=== PATIENT | female | born 1985 | race Caucasian/White ===

== ENCOUNTER 2023-09-28 09:31 | Emergency (ER) | payer OTHER, SELFPAY ==
[2023-09-28 09:36] VITALS: BP 157/99
[2023-09-28 10:03] VITALS: BP 133/100
[2023-09-28 10:05] VITALS: BMI 29.3
--- NOTE | 2023-09-28 10:10 | ED.GENMED ---
History of Present Illness
General
Chief Complaint: Heart Rate Problem
Time Seen by Provider: 09/28/23 09:54
History of Present Illness
History of Present Illness:
38-year-old female with history of hypertension, bigeminy and mitral valve prolapse presenting to the emergency department for palpitations and leg pain. Patient reports for the past several days she has been having a burning/flushing sensation in
her chest. She feels like her heart rate has been jumping around. She reports that she has been compliant with her medications. She recently traveled from [place] in the middle of August, 4-hour flight. She has been having pain in her thighs.
She called her restaurant hostess who to make sure that she does not have a blood clot. Denies any history of blood clots in the past or any family history of blood clots. Denies any difficulty breathing. She did not take her blood pressure medications
this morning. Patient is also on Augmentin, getting over a upper respiratory infection. Suspect 2 weeks ago. Denies additional acute medical complaints
Past History
Past History
ED Past Medical History: Arrthythmia (frequent PVC's, bigeminy)
ED Past Surgical History:
Phy Exam
Physical Exam
Physical Exam:
General: Well-appearing, no clinical signs of dehydration, nontoxic and in no acute distress
HEENT: protecting airway
Neck: appears supple
CV: Normal heart rate, regular rhythm, no evidence of cyanosis
Resp: No accessory muscle use, no increased work of breathing, lungs clear to auscultation bilaterally
Abd: Soft and non-distended, no tenderness to palpation, normal bowel sounds
Extremities: No deformities, no swelling, no erythema, pulses and sensation intact.
Neuro: alert, no focal neurologic deficit
: deferred
Rectal: deferred
Psych: Anxious
Skin: Intact
Scores
Heart Score for Chest Pain Patients
STEMI patient?: No
History: Slightly or Non-Suspicious
ECG: Normal
Age: </= 45 years
Risk Factors: 1 or 2 Risk Factors
Troponin: </= Normal Limit
Heart Score for Chest Pain Patients: 1
Heart Score Risk: 2.5% MACE over next 6 weeks
PE Wells Score
Symptoms of DVT: No
No alternative diagnosis better explains the illness: No
Tachycardia with pulse > 100: No
Immobilization (>=3 days) or surgery within previous 4 weeks: No
Prior history of DVT or pulmonary embolism: No
Presence of hemoptysis: No
Presence of malignancy: No
Pulmonary Embolism Risk Score: 0
Probability of PE: Pt is low risk
Course
Orders/Labs/Results
Orders:
Orders
09/28/23 09:35
Electrocardiogram (*1) Urgent
Reason for Study: Chest Pain
EKG- Treatment ONCE
09/28/23 10:05
Test Result ONCE
09/28/23 10:08
Complete Blood Count/With Diff Urgent
Comprehensive Metabolic Panel Urgent
D-Dimer Urgent
HCG, Serum Qualitative Screen Urgent
Troponin I Urgent
09/28/23 10:10
NIFEdipine EXTENDED RELEASE [Procardia Xl (Extended Release)] 60 mg PO NOW STA
09/28/23 10:50
Labetalol [Trandate] 100 mg PO NOW STA
Abnormal Lab Results
09/28/23
10:08
RBC 3.84 L 10^6/uL
(4.20-5.40)
Hct 35.7 L %
(37.0-47.0)
MCH 33.3 H pg
(27.0-31.0)
09/28/23 10:08
09/28/23 10:08
Vital Signs
Initial and Last Documented VS:
Initial Vital Signs
Temp Pulse Resp BP Pulse Ox
98.9 F 102 16 157/99 100
09/28/23 09:36 09/28/23 09:36 09/28/23 09:36 09/28/23 09:36 09/28/23 09:36
Last Documented Vital Signs
Temp Pulse Resp BP Pulse Ox
98.9 F 78 15 129/83 97
09/28/23 09:36 09/28/23 12:00 09/28/23 12:00 09/28/23 11:03 09/28/23 12:00
MDM/Problems Addressed
MDM/Problems Addressed:
38-year-old female with history of hypertension, bigeminy, mitral valve prolapse presenting for lower extremity pain and palpitations. Vital signs on arrival are significant for hypertension, however patient did not take her blood pressure
medications this morning.
On exam patient is well-appearing, however very anxious. Unremarkable cardiac and pulmonary exam. EKG obtained, nonischemic. No signs of bigeminy or arrhythmia. Patient low risk for ACS, currently without chest pain. Low suspicion for acute
coronary syndrome. Patient with minimal PE risk factors. Notes that she did recently travel on a plane for a 4-hour flight. Her main concern is a PE. No signs of DVT to the lower extremities. She is Wells negative. Suspect musculoskeletal
quality to patient's pain. Will screen with a D-dimer. Will administer patient's home blood pressure medications.
12:30 -patient's labs are negative, with negative troponin and negative D-dimer. At this time, again without concern for PE or acute cardiac event. Patient remains hemodynamically stable. Advised compliance with her blood pressure medication, and
follow-up with her restaurant hostess.. Return precautions discussed and patient verbalized understand
*EKG
Interpreted by ED Provider?: Yes
EKG Intrepretation Date: 09/28/23
EKG Intrepretation Time: 10:14
Interpretation: normal
Comparison EKG: no changes
Heart Rate: 97
Rate: normal
Rhythm: sinus
[place]: normal axis
Interval: normal interval
QRS Pattern: normal QRS
Ischemia: no ischemia
*Critical Care Note
Total Time (30-74mins, 75-104mins- exclusive of procedures): Not Applicable
ED Attending Note
-
Portions of this chart may have been created with voice recognition software.� Occasional wrong word or��sound alike� substitutions may have occurred due to the inherent limitations of voice recognition software.
Discharge Plan
Departure
Patient Disposition: Home (Routine Discharge)
Date of Disposition: 09/28/23
Time of Disposition: 12:34
Patient with high blood pressure during this ER visit?: Yes
Condition: Good
Discharge Problem:
Heart palpitations, Hypertension
Instructions: Palpitations (DC), BLOOD PRESSURE
Referrals:
Zohaib Arriaga MD [Family Provider] -
Interventions
Interventions:
*Risk Screen - Suicide Last Done: 09/28/23 09:36
*General Assessment Last Done: 09/28/23 09:36
*Neglect/Abuse Screening Last Done: 09/28/23 09:36
ED- Fall Risk Assessment Last Done: 09/28/23 10:08
ED- Cardiac Assessment Last Done: 09/28/23 10:08
ED- Pulmonary Assessment Last Done: 09/28/23 10:08
Discharge Date and Time
Print Language: CHINESE
[2023-09-28 10:37] LABS: % Basophils 0.5 % (0-2); % Eosinophils 1.1 % (0-6); % Immature Granulocytes 0.4 % (0-0.5); % Lymphocytes 27.8 % (20.5-51.1); % Monocytes 8.2 % (1.7-9.3); Absolute Eosinophils 0.1 10^3/uL (0-0.7); Absolute Lymphocytes 1.6 10^3/uL (1.2-3.4); Absolute Monocytes 0.5 10^3/uL (0.1-0.6); Absolute Neutrophils 3.5 10^3/uL (1.4-6.5); Hematocrit 35.7 % (37.0-47.0); Hemoglobin 12.8 g/dL (12.0-16.0); Mean Corp Hgb Conc. 35.9 g/dL (33.0-37.0); Mean Corpuscular Hgb 33.3 pg (27.0-31.0); Mean Platelet Volume 9.3 fL (7.4-10.4); Nucleated Red Blood Cells % 0 %; Platelet Count 275 10^3/uL (130-400); Red Blood Cell Count 3.84 10^6/uL (4.20-5.40); Red Cell Dist. Width 12.5 % (11.5-14.5); White Blood Cell Count 5.7 10^3/uL (4.8-10.8)
[2023-09-28 10:40] LABS: HCG, Serum Qualitative Screen Negative
[2023-09-28 10:45] LABS: ALT (SGPT) 21 U/L (0-35); AST (SGOT) 23 U/L (14-36); Albumin 4.3 g/dl (3.5-5.0); Alkaline Phosphatase 71 U/L (38-126); Blood Urea Nitrogen 10 mg/dl (7-17); Calcium 9.2 mg/dl (8.4-10.2); Carbon Dioxide 25 mmol/L (22-30); Chloride 107 mmol/L (98-107); Estimated Creatinine Clearance > 125 ml/min; Glucose 99 mg/dl (70-99); Potassium 4.3 mmol/L (3.5-5.1); Sodium 139 mmol/L (135-145); Total Bilirubin 0.8 mg/dl (0.2-1.3); Total Protein 6.4 g/dl (6.3-8.2); eGFR > 60.00
[2023-09-28 10:51] VITALS: BP 128/84
[2023-09-28 10:55] LABS: Troponin I < 0.012 ng/ml
[2023-09-28 11:00] VITALS: BP 129/83
[2023-09-28] MEDS: PROCARDIA XL (EXTENDED RELEASE) 60 MG PO (11:03)
[2023-09-28] MEDS: TRANDATE 100 MG PO (11:03)
[2023-09-28 12:00] VITALS: BP 110/76
[2023-09-28 12:00] LABS: D-Dimer < 0.27 ug/mlFEU (0.00-0.50)
== END 2023-09-28 12:48 | disposition home or self-care (01) ==
LOC: EMR 09:31
PROVIDERS: EMERGENCY PHYSICIAN Student in an Organized Health Care Education/Training Program; FAMILY PHYSICIAN Internal Medicine
DX: R00.2 Palpitations (principal); I10 Essential (primary) hypertension
CPT/HCPCS: 99284; 80053; 84484; 84703; 85025; 85379; 93005

== ENCOUNTER 2023-10-03 15:23 | Emergency (ER) | payer OTHER, SELFPAY ==
[2023-10-03 15:27] VITALS: BP 143/85
[2023-10-03 16:00] LABS: % Basophils 0.5 % (0-2); % Eosinophils 0.5 % (0-6); % Immature Granulocytes 0.5 % (0-0.5); % Lymphocytes 18.1 % (20.5-51.1); % Monocytes 6.2 % (1.7-9.3); % Neutrophils 74.2 % (42.2-75.2); Absolute Lymphocytes 1.2 10^3/uL (1.2-3.4); Absolute Monocytes 0.4 10^3/uL (0.1-0.6); Absolute Neutrophils 4.8 10^3/uL (1.4-6.5); Hematocrit 37.7 % (37.0-47.0); Hemoglobin 13.2 g/dL (12.0-16.0); Mean Corpuscular Hgb 32.8 pg (27.0-31.0); Mean Corpuscular Volume 93.5 fL (81.0-99.0); Mean Platelet Volume 9.2 fL (7.4-10.4); Nucleated Red Blood Cells % 0 %; Platelet Count 270 10^3/uL (130-400); Red Blood Cell Count 4.03 10^6/uL (4.20-5.40); Red Cell Dist. Width 12.3 % (11.5-14.5); White Blood Cell Count 6.5 10^3/uL (4.8-10.8)
[2023-10-03 16:20] LABS: ALT (SGPT) 37 U/L (0-35); AST (SGOT) 35 U/L (14-36); Alkaline Phosphatase 70 U/L (38-126); Blood Urea Nitrogen 10 mg/dl (7-17); Calcium 9.9 mg/dl (8.4-10.2); Carbon Dioxide 24 mmol/L (22-30); Chloride 106 mmol/L (98-107); Glucose 122 mg/dl (70-99); Magnesium 2.1 mg/dl (1.6-2.3); Potassium 4.1 mmol/L (3.5-5.1); Sodium 138 mmol/L (135-145); Total Protein 7.3 g/dl (6.3-8.2); eGFR > 60.00
[2023-10-03 16:22] LABS: NT-proBNP < 20.0 pg/ml; Troponin I < 0.012 ng/ml
[2023-10-03 16:26] VITALS: BMI 29.3
--- NOTE | 2023-10-03 16:44 | ED.GENMED ---
History of Present Illness
<Kamla Horowitz DO, Resident - Last Filed: 10/03/23 17:09>
General
Chief Complaint: Heart Rate Problem
Source: patient
Time Seen by Provider: 10/03/23 16:32
History of Present Illness
History of Present Illness:
Pt is a 38 Yo F with hx of MVP presenting to ED after heart rate spikes and drops, sensations of chest pressure and dizziness. She recently completed a course of Augmentin and is currently taking labetalol and nifedipine. She reports chest
tightness, dizziness, brain fog, sensations of difficulty breathing and faintness. Symptoms have been ongoing since August 28.
If applicable-neuro sx onset
Onset of symptoms known: Yes
Date of onset of symptoms: 08/29/23
Past History
<Kamla Horowitz DO, Resident - Last Filed: 10/03/23 17:09>
Past History
ED Past Medical History: Arrthythmia (frequent PVC's, bigeminy)
ED Past Surgical History:
Social History
Tobacco: Non-smoker
Alcohol: Occasional
Drug: None
Personal:
Family History
Family History: CAD
Review of Systems
<Kamla Horowitz DO, Resident - Last Filed: 10/03/23 17:09>
Review of Systems
Constitutional: Reports no symptoms
EENT: Reports no symptoms
Respiratory: Reports no symptoms
Cardiac: Reports chest pain (chest tightness), diaphoresis, palpitations and syncope
ABD/GI: Reports nausea
: Reports no symptoms
Musculoskeletal: Reports edema (BL legs, intermittent)
Skin: Reports other (bruising behind knees)
Neurological: Reports dizzy, weakness and other (brain fog)
Endocrine: Reports no symptoms
Phy Exam
<Kamla Horowitz DO, Resident - Last Filed: 10/03/23 17:09>
General Physical Exam
General Presentation: mild distress
General age: appears stated age
General Skin: warm and dry
General Habitus: normal
General Mental: alert
General Hydration: appears well hydrated
Cardiovascular Exam
Cardiovascular Exam: regular rate/rhythm, no edema, no gallop, no JVD, no murmur and normal peripheral pulses
Pulmonary Exam
Pulmonary Exam: lungs clear, no respiratory distress, no rales, chest non tender, no crackles, no rhonchi, no stridor, no wheezing and no cough
Gastrointestinal Exam
Gastrointestinal Exam: non tender, soft and non distended
Course
<Kamla Horowitz DO, Resident - Last Filed: 10/03/23 17:09>
Orders/Labs/Results
Orders:
Orders
10/03/23 15:26
ECG [Electrocardiogram (*1)] Urgent
Reason for Study: Tachycardia
EKG- Treatment ONCE
10/03/23 15:38
Complete Blood Count/With Diff Urgent
Comprehensive Metabolic Panel Urgent
Magnesium Urgent
NT-proBNP Urgent
TSH Reflex To Free T4 Urgent
Troponin I Urgent
10/03/23 17:08
US Periph Venous LOWER Ext Eddie Urgent
Comment:
Reason For Exam: swelling
10/03/23 17:09
Add On- LAB Urgent
Tests Added?: tsh, magnesium
10/03/23 17:26
D-Dimer Urgent
Abnormal Lab Results
10/03/23
15:38
RBC 4.03 L 10^6/uL
(4.20-5.40)
MCH 32.8 H pg
(27.0-31.0)
Lymphocytes % 18.1 L %
(20.5-51.1)
Glucose 122 H mg/dl
(70-99)
ALT 37 H U/L
(0-35)
10/03/23 15:38
10/03/23 15:38
Vital Signs
Initial and Last Documented VS:
Initial Vital Signs
Temp Pulse Resp BP Pulse Ox
98.3 F 113 20 143/85 99
10/03/23 15:27 10/03/23 15:27 10/03/23 15:27 10/03/23 15:27 10/03/23 15:27
Last Documented Vital Signs
Temp Pulse Resp BP Pulse Ox
98.3 F 94 13 121/85 98
10/03/23 15:27 10/03/23 19:15 10/03/23 19:15 10/03/23 17:00 10/03/23 19:15
<Dino Kinney, DO - Last Filed: 10/03/23 19:31>
Orders/Labs/Results
Orders:
Orders
10/03/23 15:26
ECG [Electrocardiogram (*1)] Urgent
Reason for Study: Tachycardia
EKG- Treatment ONCE
10/03/23 15:38
Complete Blood Count/With Diff Urgent
Comprehensive Metabolic Panel Urgent
Magnesium Urgent
NT-proBNP Urgent
TSH Reflex To Free T4 Urgent
Troponin I Urgent
10/03/23 17:08
US Periph Venous LOWER Ext Eddie Urgent
Comment:
Reason For Exam: swelling
10/03/23 17:09
Add On- LAB Urgent
Tests Added?: tsh, magnesium
10/03/23 17:26
D-Dimer Urgent
Abnormal Lab Results
10/03/23
15:38
RBC 4.03 L 10^6/uL
(4.20-5.40)
MCH 32.8 H pg
(27.0-31.0)
Lymphocytes % 18.1 L %
(20.5-51.1)
Glucose 122 H mg/dl
(70-99)
ALT 37 H U/L
(0-35)
10/03/23 15:38
10/03/23 15:38
Vital Signs
Initial and Last Documented VS:
Initial Vital Signs
Temp Pulse Resp BP Pulse Ox
98.3 F 113 20 143/85 99
10/03/23 15:27 10/03/23 15:27 10/03/23 15:27 10/03/23 15:27 10/03/23 15:27
Last Documented Vital Signs
Temp Pulse Resp BP Pulse Ox
98.3 F 94 13 121/85 98
10/03/23 15:27 10/03/23 19:15 10/03/23 19:15 10/03/23 17:00 10/03/23 19:15
<Dino Kinney DO - Last Filed: 10/03/23 19:31>
*Critical Care Note
Total Time (30-74mins, 75-104mins- exclusive of procedures): Not Applicable
ED Attending Note
<Kamla Horowitz DO, Resident - Last Filed: 10/03/23 17:09>
-
Portions of this chart may have been created with voice recognition software.� Occasional wrong word or��sound alike� substitutions may have occurred due to the inherent limitations of voice recognition software.
<Dino Kinney DO - Last Filed: 10/03/23 19:31>
ED Attending Note
Patient seen and examined by attending physician: Yes
I performed a history and physical exam of patient and discussed management with resident, I reviewed resident's note and agree with documented findings and plan of care.: Yes
ED Attending Note:
seen with resident, examined independently, hr up/down, labetolol titrated up, recent travel, legs swollen, plan--monitor, labs, tsh, doppler
Update, patient maintains a sinus rhythm with occasional PVC patient concerned with her symptoms, said no bradycardia here, provided reassurance I did reach out to cardiology office will call her tomorrow to get her cardiac rehabilitation specialist placed, patient
will return to the ER for worsening symptoms
Discharge Plan
Departure
Patient Disposition: Home (Routine Discharge)
Date of Disposition: 10/03/23
Time of Disposition: 19:30
Patient with high blood pressure during this ER visit?: No
Condition: Good
Discharge Problem:
Heart palpitations
Instructions: Palpitations (DC), BLOOD PRESSURE
Referrals:
NONE,* [Active] -
Ruel Jones MD [Active] - Next open appointment
Activity Restrictions/Additional Instructions:
Expect a call from cardiology by tomorrow at 11 AM
Interventions
Interventions:
*Risk Screen - Suicide Last Done: 10/03/23 15:27
*General Assessment Last Done: 10/03/23 15:27
*Neglect/Abuse Screening Last Done: 10/03/23 15:27
ED- Cardiac Assessment Last Done: 10/03/23 17:54
ED- Pulmonary Assessment Last Done: 10/03/23 17:54
Discharge Date and Time
Print Language: STATELESS
[2023-10-03 16:59] LABS: TSH Reflex To Free T4 0.76 uIU/ml (0.47-4.68)
[2023-10-03 17:00] VITALS: BP 121/85
[2023-10-03 17:56] LABS: D-Dimer < 0.27 ug/mlFEU (0.00-0.50)
[2023-10-03 19:48] VITALS: BP 119/78
== END 2023-10-03 20:04 | disposition home or self-care (01) ==
LOC: EMR 15:23
PROVIDERS: Emergency Medicine; EMERGENCY PHYSICIAN Emergency Medicine; FAMILY PHYSICIAN Internal Medicine
DX: R00.2 Palpitations (principal); R03.0 Elevated blood-pressure reading, without diagnosis of hypertension; R60.9 Edema, unspecified
CPT/HCPCS: 99285; 80053; 83735; 83880; 84443; 84484; 85025; 85379; 93005; 93970

== ENCOUNTER → 2023-10-05 08:24 | Outpatient (REF) | payer OTHER, SELFPAY | LOC: RCS 08:24 | PROVIDERS: ATTENDING PHYSICIAN Internal Medicine; FAMILY PHYSICIAN Internal Medicine | DX: I49.3 Ventricular premature depolarization (principal) | CPT/HCPCS: 93225; 93226 ==

== ENCOUNTER → 2023-10-29 14:40 | Outpatient (REF) | payer OTHER, SELFPAY | LOC: RCS 14:40 | PROVIDERS: ATTENDING PHYSICIAN Internal Medicine Cardiovascular Disease; FAMILY PHYSICIAN Internal Medicine | DX: I49.3 Ventricular premature depolarization (principal); I10 Essential (primary) hypertension; R00.2 Palpitations | CPT/HCPCS: 93306 ==